=== PATIENT | male | born 1965 | race Caucasian/White ===

== ENCOUNTER 2020-09-15 09:32 | Emergency (ER) | payer OTHER ==
[2020-09-15 09:35] VITALS: BP 138/82; PULSE 92; TEMP 97.9; BMI 27.9
== END 2020-09-15 10:52 | disposition home or self-care (01) ==
LOC: JERFT 09:32
DX: S63.616A Unspecified sprain of right little finger, initial encounter (principal)
CPT/HCPCS: 73130-TC-RT-FY; 99284-25

== ENCOUNTER 2021-02-23 06:52 | Inpatient (IN) | payer OTHER ==
[2021-02-23] MEDS ORDERED: ALBUTEROL SO4 2.5/IPRATROPIUM 0.5 INH SOL 3 ML VIAL.NEB. NEB ONE (07:30)
[2021-02-23] MEDS ORDERED: SODIUM CHLORIDE 1,000 ML IV STA (07:30)
[2021-02-23] MEDS ORDERED: methylPREDNISolone NA SUCC 125 MG/2 ML VIAL IVPB ONE (07:30)
[2021-02-23] MEDS ORDERED: EPINEPHrine 1:1,000 0.3 MG/0.3 ML SYR IM ONE (07:30)
[2021-02-23] MEDS ORDERED: FAMOTIDINE 20 MG/50 ML IVPB 20 MG/50 ML MG IVPB ONE ×3 (07:30→22:17)
[2021-02-23 07:36] VITALS: BMI 26.8
[2021-02-23] MEDS ORDERED: EPINEPHrine/PF 1 MG/1 ML (1:1,000) AMPULE ONE (07:40)
[2021-02-23] MEDS ORDERED: methylPREDNISolone NA SUCC 125 MG/2 ML VIAL ONE (07:41)
[2021-02-23 08:18] LABS: BASO % 0.6 % (0-2.0); EOS % 1.7 % (0-4.5); HEMATOCRIT 43.4 % (35.4-49); HEMOGLOBIN 15.3 GM/dL (11.7-16.9); LYMPH % 20.9 % (8-40); MCH 33.4 pg (25.7-33.7); MCHC 35.2 g/dl (32.0-35.9); MEAN CELL VOLUME 94.9 fl (80-96); MEAN PLT VOLUME 7.9 fl (7.5-11.1); MONO % 6.8 % (3.8-10.2); PLATELET COUNT 251 K/MM3 (134-434); RBC 4.57 M/mm3 (4.00-5.60); RDW 14.5 % (11.9-15.9); WHITE BLOOD COUNT 8.7 K/mm3 (4.0-10.0)
[2021-02-23 08:23] LABS: BLOOD UREA NITROGEN 13.3 mg/dL (7-18)
[2021-02-23 08:26] LABS: CREATININE 0.8 mg/dL (0.55-1.3)
[2021-02-23] MEDS ORDERED: DEXAMETHASONE SOD PHOSPHATE 10 MG/1 ML VIAL IVPUSH ONE (10:49)
[2021-02-23] MEDS ORDERED: DEXAMETHASONE SOD PHOSPHATE 10 MG/1 ML VIAL ONE ×2 (10:56→18:35)
[2021-02-23] MEDS: SODIUM CHLORIDE 1,000 ML IV SCH (11:15)
[2021-02-23] MEDS ORDERED: MUPIROCIN 2% TOPICAL OINTMENT FOR DECOLONIZATION NS SCH ×2 (11:45→22:00)
[2021-02-23] MEDS ORDERED: ENOXAPARIN NA (PORCINE) 40 MG/0.4 ML DISP.SYRIN SQ SCH (13:15)
[2021-02-23] MEDS ORDERED: ENOXAPARIN NA (PORCINE) 40 MG/0.4 ML DISP.SYRIN SQ ONE (14:35)
[2021-02-23] MEDS: POTASSIUM CHLORIDE 10 MEQ in DEXTROSE 5%-NORMAL SALINE 1,000 ML IVPB SCH (14:54)
[2021-02-23] MEDS ORDERED: methylPREDNISolone NA SUCC 40 MG/1 ML VIAL IVPUSH SCH (18:00)
[2021-02-23] MEDS: DEXAMETHASONE SOD PHOSPHATE 10 MG/1 ML VIAL IVPUSH SCH (18:57)
[2021-02-23] MEDS ORDERED: FAMOTIDINE 20 MG/50 ML IVPB 20 MG/50 ML MG IVPB SCH (22:00)
[2021-02-23] MEDS ORDERED: CHLORHEXIDINE GLUCONATE 4% CLEANSER FOR DECOLONIZATION TP SCH ×2 (22:00)
[2021-02-24 06:49] VITALS: TEMP 98.2
[2021-02-24 07:18] LABS: BASO % 0.3 % (0-2.0); HEMATOCRIT 40.2 % (35.4-49); HEMOGLOBIN 13.9 GM/dL (11.7-16.9); LYMPH % 9.2 % (8-40); MCH 33.1 pg (25.7-33.7); MCHC 34.5 g/dl (32.0-35.9); MEAN CELL VOLUME 95.9 fl (80-96); MEAN PLT VOLUME 8.5 fl (7.5-11.1); MONO % 4.2 % (3.8-10.2); NEUT % 86.3 % (42.8-82.8); PLATELET COUNT 226 K/MM3 (134-434); RBC 4.19 M/mm3 (4.00-5.60); WHITE BLOOD COUNT 12.6 K/mm3 (4.0-10.0)
[2021-02-24 07:42] LABS: ALBUMIN 2.6 g/dl (3.4-5.0); BLOOD UREA NITROGEN 9.1 mg/dL (7-18); CALCIUM 7.9 mg/dL (8.5-10.1); MAGNESIUM 2.1 mg/dL (1.8-2.4)
[2021-02-24 07:44] LABS: CREATININE 0.6 mg/dL (0.55-1.3)
[2021-02-24 07:46] LABS: BILIRUBIN,TOTAL 0.3 mg/dL (0.2-1); PHOSPHOROUS 3.2 mg/dL (2.5-4.9); TOT PROT 8.1 g/dl (6.4-8.2)
[2021-02-24] MEDS ORDERED: FAMOTIDINE 20 MG/50 ML IVPB 20 MG/50 ML MG IVPB ONE (08:31)
[2021-02-24] MEDS ORDERED: ENOXAPARIN NA (PORCINE) 40 MG/0.4 ML DISP.SYRIN SQ ONE (08:31)
[2021-02-24] MEDS: SODIUM CHLORIDE 1,000 ML IV SCH (08:41)
[2021-02-24] MEDS ORDERED: diphenhydrAMINE HCL 25 MG CAPSULE (FP) PO ONE (08:43)
[2021-02-24] MEDS ORDERED: DEXAMETHASONE SOD PHOSPHATE 4 MG/1 ML VIAL ONE (08:44)
[2021-02-24] MEDS: POTASSIUM CHLORIDE 10 MEQ in DEXTROSE 5%-NORMAL SALINE 1,000 ML IVPB SCH (08:56)
[2021-02-24] MEDS: DEXAMETHASONE SOD PHOSPHATE 10 MG/1 ML VIAL IVPUSH SCH (08:57)
[2021-02-24] MEDS ORDERED: PANTOPRAZOLE 40 MG TABLET PO SCH (10:00)
[2021-02-24] MEDS ORDERED: diphenhydrAMINE HCL 50 MG CAPSULE PO SCH (10:00)
[2021-02-24] MEDS ORDERED: DEXAMETHASONE 4 MG TABLET (FP) PO SCH (10:00)
[2021-02-24 11:52] VITALS: BP 116/52; PULSE 65
== END 2021-02-24 11:50 | disposition home or self-care (01) | DRG 811 ==
LOC: JER 06:52 → JERBED 11:19
PROVIDERS: ADMIT Internal Medicine; ATTEND Internal Medicine
DX: T78.1XXA Other adverse food reactions, not elsewhere classified, initial encounter (principal); T78.3XXA Angioneurotic edema, initial encounter; R22.1 Localized swelling, mass and lump, neck; F17.210 Nicotine dependence, cigarettes, uncomplicated; Z91.018 Allergy to other foods
CPT/HCPCS: 36415; 80048; 80053; 83735; 84100; 85025; 93005; 93010; 99291; C9803; J1100; U0003; U0005

== ENCOUNTER 2022-02-08 08:10 | Emergency (ER) | payer OTHER ==
[2022-02-08 08:24] VITALS: BMI 25.8
[2022-02-08] MEDS ORDERED: PIPERACILLIN/TAZOB 4.5 GM 4.5 GM in DEXTROSE 5%-WATER 100 ML IVPB ONE (09:11)
[2022-02-08 11:31] LABS: BASO % 0.5 % (0-2.0); EOS % 0.8 % (0-4.5); HEMATOCRIT 37.4 % (35.4-49); HEMOGLOBIN 12.8 GM/dL (11.7-16.9); MCH 31.3 pg (25.7-33.7); MCHC 34.1 g/dl (32.0-35.9); MEAN CELL VOLUME 91.6 fl (80-96); MEAN PLT VOLUME 7.4 fl (7.5-11.1); MONO % 5.7 % (3.8-10.2); PLATELET COUNT 306 10^3/uL (134-434); RBC 4.08 M/mm3 (4.00-5.60); RDW 13.9 % (11.9-15.9); WHITE BLOOD COUNT 12.6 K/mm3 (4.0-10.0)
[2022-02-08 11:38] LABS: INR 1.14 (0.83-1.09); PROTHROMBIN TIME (PATIENT) 13.1 SEC (9.7-13.0)
[2022-02-08 11:41] LABS: ACTIVATED PTT 29.6 SECONDS (25.2-36.5)
[2022-02-08] MEDS ORDERED: PIPERACILLIN/TAZOB 4.5 GM 4.5 GM/100 ML BAG IVPB ONE (11:47)
[2022-02-08 11:57] LABS: CALCIUM 9.9 mg/dL (8.5-10.1)
[2022-02-08 11:58] LABS: ALBUMIN 2.9 g/dl (3.4-5.0); BLOOD UREA NITROGEN 14.1 mg/dL (7-18)
[2022-02-08 12:02] LABS: CREATININE 0.7 mg/dL (0.55-1.3)
[2022-02-08 12:04] LABS: BILIRUBIN,TOTAL 0.4 mg/dL (0.2-1)
[2022-02-08] MEDS ORDERED: ACETAMINOPHEN INJECTION 100 ML IVPB ONE (13:06)
[2022-02-08] MEDS ORDERED: ACETAMINOPHEN 1000 MG/100 ML BAG IVPB ONE (13:10)
[2022-02-08] MEDS ORDERED: morphine SULFATE 4 MG/ML VIAL ONE (18:47)
[2022-02-08 19:17] VITALS: BP 105/67; PULSE 124; TEMP 98.2
== END 2022-02-08 19:22 | disposition short-term general hospital (02) ==
LOC: JER 08:10
PROC: 3E0333Z Introduction of Anti-inflammatory into Peripheral Vein, Percutaneous Approach (ICD-10-PCS; principal; 2022-02-08)
PROC: 3E03329 Introduction of Other Anti-infective into Peripheral Vein, Percutaneous Approach (ICD-10-PCS; 2022-02-08)
DX: S31.819A Unspecified open wound of right buttock, initial encounter (principal); Y99.9 Unspecified external cause status
CPT/HCPCS: 36415; 71046-TC-FY; 72193-TC; 80053; 85025; 85610; 85730; 86850; 86900; 86901; 87040; 87070; 87076; 87077; 87186; 87205; 93005; 93010; 99285-25; C1887; C9803-CS; Q9967; U0003; U0005